=== PATIENT | female | born 1995 | race American Indian/Alaskan Native ===

== ENCOUNTER 2021-11-11 16:08 | Emergency (ER) | payer SELFPAY ==
--- NOTE | 2021-11-11 18:29 | XRay Report ---
RIGHT FOOT 3 VIEW(S) INDICATION / CLINICAL INFORMATION: FALL COMPARISON: None available. FINDINGS: BONES / JOINT(S): No acute fracture or subluxation. No significant arthritis. SOFT TISSUES: No significant abnormality. ADDITIONAL FINDINGS: None. IMPRESSION: 1. No acute findings. Signer Name: Isak Hernandez MD Signed: 11/11/2021 6:25 PM Workstation Name: [id number]
--- NOTE | 2021-11-11 20:48 | Emergency Department Report ---
ED Lower Extremity HPI - General Chief Complaint: Extremity Injury, Lower Stated Complaint: FOOT PAIN Time Seen by Provider: 11/11/21 20:29 Source: patient Mode of arrival: Ambulatory Limitations: No Limitations - History of Present Illness Initial Comments: Is a 26-year-old female who presents for right midfoot pain. Patient states she fell down 6 steps this AM. Causing her to twist her foot. Now with 6/10 foot pain exacerbated by attempted weightbearing. Pain is relieved by offloading. There is mild swelling no abrasions no lacerations no bleeding no deformity. Patient arrived to ED via POV. Patient denies other complaint, MD Complaint: foot injury - Related Data Previous Rx's Medication Instructions Recorded Last Taken Type Naproxen 500 mg PO BID PRN #30 tab 11/11/21 Unknown Rx Allergies Allergy/AdvReac Type Severity Reaction Status Date / Time latex AdvReac Hives Verified 11/11/21 16:58 ED Review of Systems ROS: Stated complaint: FOOT PAIN Other details as noted in HPI Constitutional: denies: chills, fever Eyes: denies: eye pain, eye discharge, vision change ENT: denies: ear pain, throat pain Respiratory: denies: cough, shortness of breath, wheezing Cardiovascular: denies: chest pain, palpitations Endocrine: no symptoms reported Gastrointestinal: denies: abdominal pain, nausea, diarrhea Genitourinary: denies: urgency, dysuria, discharge Musculoskeletal: other Skin: denies: rash, lesions Neurological: denies: headache, weakness, paresthesias Psychiatric: denies: anxiety, depression Hematological/Lymphatic: denies: easy bleeding, easy bruising ED Past Medical Hx - Medications Home Medications: Home Medications Medication Instructions Recorded Confirmed Last Taken Type Naproxen 500 mg PO BID PRN #30 tab 11/11/21 Unknown Rx ED Physical Exam - General Limitations: No Limitations General appearance: alert, in no apparent distress - Head Head exam: Present: atraumatic, normocephalic - Eye Eye exam: Present: EOMI Pupils: Present: normal accommodation - ENT ENT exam: Present: mucous membranes moist - Neck Neck exam: Present: normal inspection, full ROM. Absent: tenderness - Respiratory Respiratory exam: Present: normal lung sounds bilaterally. Absent: respiratory distress, wheezes - Cardiovascular Cardiovascular Exam: Present: regular rate, normal rhythm, normal heart sounds - GI/Abdominal GI/Abdominal exam: Present: soft, normal bowel sounds. Absent: distended, tenderness - Rectal Rectal exam: Present: deferred - Extremities Exam Extremities exam: Present: normal inspection, full ROM, normal capillary refill - Expanded Lower Extremity Exam Right Foot/Toe exam: Present: full ROM, tenderness, swelling (Right dorsal foot no ecchymosis no crepitus no step-off.). Absent: abrasion, laceration, ecchymosis, deformity, crepidus, dislocation, erythema, amputation, puncture wound, foreign body, calcaneal tenderness, nail avulsion, subungual hematoma Neuro vascular tendon exam: Absent: pulse deficit, motor deficit, sensory deficit, tendon deficit Gait: Positive: unable to bear weight - Back Exam Back exam: Present: normal inspection, full ROM. Absent: paraspinal tenderness, vertebral tenderness - Neurological Exam Neurological exam: Present: alert, oriented X3, CN II-XII intact, reflexes normal. Absent: motor sensory deficit - Expanded Neurological Exam Expanded Patient oriented to: Present: person, place, time Speech: Present: fluid speech Motor strength exam: RUE: 5, LUE: 5, RLE: 5, LLE: 5 DTR: ankle (R): 1+, ankle (L): 1+ Best Eye Response ([place]): (4) open spontaneously Best Motor Response ([place]): (6) obeys commands Best Verbal Response ([place]): (5) oriented [place] Total: 15 - Psychiatric Psychiatric exam: Present: normal affect, normal mood - Skin Skin exam: Present: warm, dry, intact, normal color. Absent: rash ED Course Vital Signs 11/11/21 16:57 Temperature 98.2 F Pulse Rate 91 H Respiratory 20 Rate Blood Pressure 122/77 [Right] O2 Sat by Pulse 100 Oximetry ED Lower Extremity MDM - Radiology Data Radiology results: report reviewed, image reviewed RIGHT FOOT 3 VIEW(S) INDICATION / CLINICAL INFORMATION: FALL COMPARISON: None available. FINDINGS: BONES / JOINT(S): No acute fracture or subluxation. No significant arthritis. SOFT TISSUES: No significant abnormality. ADDITIONAL FINDINGS: None. IMPRESSION: 1. No acute findings. Signer Name: Isak Hernandez MD Signed: 11/11/2021 6:25 PM Workstation Name: [id number] Transcribed By: MADELAINE Dictated By: Isak Hernandez MD Electronically Authenticated By: Isak Hernandez MD Signed Date/Time: 11/11/211824 DD/ 24 TD/TT: - Medical Decision Making X-ray negative for fracture there is no subluxation no dislocation no abrasions. Distal pulses intact +2. Pain is improved. Plan Ryan wrap rice therapy, crutches, follow-up with your doctor in 2 to 3 days. Patient verbalized agreement and understanding of same patient DC to home in stable condition at this time. Critical care attestation.: If time is entered above; I have spent that time in minutes in the direct care of this critically ill patient, excluding procedure time. ED Disposition Clinical Impression: Sprain of foot, right Qualifiers: Encounter type: initial encounter Qualified Code(s): S93.601A - Unspecified sprain of right foot, initial encounter Disposition: HOME / SELF CARE / HOMELESS Is pt being admited?: No Does the pt Need Aspirin: No Condition: Stable Instructions: Elastic Bandage and RICE Therapy, Foot Sprain, Crutch Use, Adult, [id number] Additional Instructions: Take medication as prescribed, rice therapy as directed, crutches as directed, follow-up with your doctor in 2 to 3 days. Return to emergency should symptoms worsen. Prescriptions: Naproxen 500 mg PO BID PRN #30 tab PRN Reason: pain Referrals: GLEN WERNER MD [Staff Physician] - 3-5 Days Forms: Work/School Release Form(ED) Time of Disposition: 20:51
[2021-11-11] MEDS ORDERED: IBUPROFEN 800 MG TAB PO ONE (20:49)
[2021-11-11 20:59] VITALS: BP 126/82
== END 2021-11-11 21:19 | disposition home or self-care (01) ==
LOC: ED 16:08
DX: S93.601A Unspecified sprain of right foot, initial encounter (principal); X58.XXXA Exposure to other specified factors, initial encounter; Y93.89 Activity, other specified; Y92.89 Other specified places as the place of occurrence of the external cause; Y99.8 Other external cause status
CPT/HCPCS: 99283